=== PATIENT | male | born 2000 | race Caucasian/White ===

== ENCOUNTER 2019-02-12 19:51 | Emergency (ER) | payer OTHER ==
--- NOTE | 2019-02-12 19:55 | ED Physician Documentation ---
General Adult - HISTORIAN Historian: patient - HPI Stated Complaint: LLQ pain Chief Complaint: Abdominal Pain Onset: hours (6) Timing: still present Severity: moderate Further Comments: yes (Per pt and mom he started to have LLQ abdominal pain and the pain has stayed steady or "maybe more" than when it started. He denies any injury and states the pain is increased with any movement and it is sharp. He has not tried any OTC meds. He had a normal Bowel movement this am. No pain with urination.) Last known Well Code/Unknown Code: Unknown - ROS CONST: no problems CVS/RESP: none GI/: abdominal pain. denies: problems urinating, vomiting, nausea, diarrhea MS/SKIN/LYMPH: none NEURO/PSYCH: denies: headache - PAST HX Past History: none Immunizations: UTD Allergies/Adverse Reactions: Allergies Allergy/AdvReac Type Severity Reaction Status Date / Time No Known Allergies Allergy Verified 02/12/19 20:04 Home Medications: Ambulatory Orders Medication Instructions Recorded NK 05/07/15 - SOCIAL HX Smoking History: non-smoker Alcohol Use: none Drug Use: none - FAMILY HX Family History: No - VITAL SIGNS Vital Signs: Vital Signs Temp Pulse Resp BP Pulse Ox 106/51 05/07/15 19:05 - REVIEWED ASSESSMENTS Nursing Assessment Reviewed: Yes Vitals Reviewed: Yes Progress - Progress Progress: 2056: Nausea and pain have resolved DG 2199: discussed results and plan both pt and mom are agreeable DG ED Results Lab/Radiology - Radiology Radiology Impressions: EXAMINATION: CT ABD/PELV W/ CON HISTORY: 18/M LLQ PAIN x1 DAY, PT STATES NO Hx OF SURGERIES, STONES, SMOKING, HEART OR LUNG PROBLEMS. (Hx) / Note time : 02/12/2019 9:33:38 PM User : Dian Platt 18/M LLQ PAIN x1 DAY, PT STATES NO Hx OF SURGERIES, STONES, SMOKING, HEART OR LUNG PROBLEMS. (DICOM Hx) (DICOM Hx) TECHNIQUE: CT of the abdomen and pelvis was performed with contrast according to standard protocol. COMPARISON: None FINDINGS: The aorta is normal in caliber. The visible lung bases are clear. The heart size is normal. The liver enhances homogeneously. Periportal edema likely relates to aggressive hydration. The gallbladder appears normal. The intrahepatic and extrahepatic bile ducts are nondilated. The spleen enhances homogeneously. The pancreas and adrenal glands are normal. The kidneys enhance symmetrically. There is no evidence of renal calculus or hydronephrosis. The distal esophagus and stomach appear normal. The small bowel and colon are normal in caliber without evidence of wall thickening or obstruction. There is minimal dilatation of a fluid filled appendix up to 8 mm in diameter, although there is no adjacent fat stranding. There is no evidence of appendicolith. No free air or free fluid is identified in the abdomen. There is no abdominal lymphadenopathy. The urinary bladder is nondistended. The prostate appears normal. No free fluid is seen in the pelvis. Bone windows demonstrate no suspicious lytic or blastic lesions. The visible osseous structures are intact. IMPRESSION: 1. No definite acute process identified in the abdomen or pelvis. There is minimal dilatation of the appendix, which is favored to represent a normal variant rather than appendicitis given the absence of adjacent fat stranding, appendicolith, and right lower quadrant pain. Electronically signed on Feb 12, 2019 9:47:54 PM CDT by: Pio Mejía General Adult Physical Exam - PHYSICAL EXAM GENERAL APPEARANCE: mild distress EENT: eye inspection normal, no signs of dehydration NECK: normal inspection RESPIRATORY: no resp distress, chest non-tender, breath sounds normal CVS: reg rate & rhythm, heart sounds normal ABDOMEN: soft, normal bowel sounds, no distension, tenderness (LLQ with palpation. No rebound. No obvious injury ) BACK: normal inspection SKIN: warm/dry, normal color EXTREMITIES: non-tender, normal range of motion NEURO: oriented X3 Discharge Clincal Impression: Abdominal pain Qualifiers: Abdominal location: left lower quadrant Qualified Code(s): R10.32 - Left lower quadrant pain UTI (urinary tract infection) Qualifiers: Urinary tract infection type: site unspecified Hematuria presence: without hematuria Qualified Code(s): N39.0 - Urinary tract infection, site not specified Referrals: Primary Doctor,No [Primary Care Provider] - 2 Days Comments: 1. Bactrim DS take 1 by mouth every 12 hours as needed for pain 2. Zofran 4 mg take 1 by mouth every 8 as needed for nausea 3. INCREASE water intake 4. Follow up with PCP in 2-4 days 5. Return to ER for any increasing concerns Condition: Stable Disposition: 01 HOME, SELF-CARE Decision to Admit: NO Date of Decison to Admit: 02/12/19 Decision Time: 22:13
[2019-02-12] MEDS ORDERED: 0.9 % SODIUM CHLORIDE 1,000 ML IV ONE ×2 (20:06→21:16)
[2019-02-12] MEDS ORDERED: ONDANSETRON HCL/PF 4 MG/ 2ML VIAL IVP ONE (20:19)
[2019-02-12] MEDS ORDERED: KETOROLAC TROMETHAMINE 30 MG/1ML VIAL IV ONE (20:25)
[2019-02-12 20:59] LABS: BASOPHILS % 0.7 % (0.0-1.5); NEUTROPHILS # 5.8 # k/uL (1.4-7.7)
[2019-02-12 21:09] LABS: eGFR (Non-African) > 60
[2019-02-12] MEDS ORDERED: SULFAMETHOXAZOLE/TRIMETHOPRIM 800/160MG TAB PO ONE (21:57)
--- NOTE | 2019-02-12 22:04 | Diagnostic Imaging Report ---
<p>Your browser does not support iframes.</p> LEONA OBRIEN [facility] [address] [facility] [address] [place], [place]. [address] Report Submission Date: Feb 12, 2019 9:47:54 PM CDT Patient Study Name: ESTUARDO PLATT Date: Feb 12, 2019 9:21:29 PM CDT Modality Type: CT\SR Gender: M Description: CT ABD/PELV W/ CON : 98 Institution: [facility] Physician: LEONA OBRIEN EXAMINATION: CT ABD/PELV W/ CON HISTORY: 18/M LLQ PAIN x1 DAY, PT STATES NO Hx OF SURGERIES, STONES, SMOKING, HEART OR LUNG PROBLEMS. (Hx) / Note time : 02/12/2019 9:33:38 PM User : Dian Platt 18/M LLQ PAIN x1 DAY, PT STATES NO Hx OF SURGERIES, STONES, SMOKING, HEART OR LUNG PROBLEMS. (DICOM Hx) (DICOM Hx) TECHNIQUE: CT of the abdomen and pelvis was performed with contrast according to standard protocol. COMPARISON: None FINDINGS: The aorta is normal in caliber. The visible lung bases are clear. The heart size is normal. The liver enhances homogeneously. Periportal edema likely relates to aggressive hydration.The gallbladder appears normal. The intrahepatic and extrahepatic bile ducts are nondilated. The spleen enhances homogeneously. The pancreas and adrenal glands are normal. The kidneys enhance symmetrically. There is no evidence of renal calculus or hydronephrosis. The distal esophagus and stomach appear normal. The small bowel and colon are normal in caliber without evidence of wall thickening or obstruction. There is minimal dilatation of a fluid filled appendixup to 8 mm in diameter, although there is noadjacent fat stranding.There is no evidence of appendicolith.No free air or free fluid is identified in the abdomen. There is no abdominal lymphadenopathy. The urinary bladder is nondistended. The prostate appears normal. No free fluid is seen in the pelvis. Bone windows demonstrate no suspicious lytic or blastic lesions. The visible osseous structures are intact. IMPRESSION: 1. No definiteacute process identified in the abdomen or pelvis.There is minimal dilatation of the appendix, which isfavored torepresent a normal variantrather than appendicitis given the absence ofadjacent fat stranding, appendicolith,and right lower quadrant pain. Electronically signed on Feb 12, 2019 9:47:54 PM CDT by: Pio DUPREE
[2019-02-12 23:12] VITALS: BP 131/59
[2019-02-13 08:18] LABS: APPEARANCE,URINE CLOUDY (CLEAR); COLOR,URINE YELLOW (YELLOW); OCCULT BLOOD,URINE NEGATIVE (NEGATIVE)
== END 2019-02-12 22:25 | disposition home or self-care (01) ==
LOC: ED 19:51
DX: N39.0 Urinary tract infection, site not specified (principal)
CPT/HCPCS: 74177; 80053; 81002; 85025; 87400; 96361; 96374; 96375; 99283; 99284; J1885; J2405; A9270; J7030; Q9967; S1016